=== PATIENT | female | born 1985 | race Caucasian/White ===

== ENCOUNTER 2018-04-30 04:36 | Emergency (ER) | payer OTHER, SELFPAY ==
[2018-04-30 04:39] VITALS: BP 151/81; PULSE 76; RESP 18; TEMP 36.4; O2SAT 98; BMI 24.2
--- NOTE | 2018-04-30 04:45 | ED.DCSUM_ITS ---
- ER Visit Summary Date of Service: 04/30/18 Chief Complaint: Vomiting and diarrhea History of Present Illness: The patient is a 33 F presenting with vomiting and diarrhea which began around 11PM. She states she has had multiple episodes of both vomiting and diarrhea. She denies blood in her stool or emesis. She is concerned about possibility of food poisoning. States she is currently camping and ate a burger with lettuce. She is unsure if anyone else ate the same lettuce. She states she was also in the heat all day drinking alcohol intermittently. She complains of diffuse abdominal cramping. Denies other complaints. Physical Examination: Vitals are stable. Patient is afebrile. Alert no acute distress. HEENT exam is unremarkable. Neck is supple. Lungs are clear and equal bilaterally. Heart is regular rate and rhythm. Abdomen is soft mild epigastric and periumbilical tenderness with no rebound or guarding Extremities are unremarkable. Skin is warm and dry. No focal neurologic deficit. Remainder of exam is unremarkable. Emergency Department Course and Treatment: Patient is given IV fluids, Phenergan. CBC shows a white count 19.5. Chemistries showed glucose 141. Liver lipase are normal. Urinalysis shows 5-10 white blood cells, 10-25 epithelial cells. HCG negative. Patient continues to have nausea and was given Zofran IV. Due to her continued abdominal tenderness and elevated white count, CT Abdomen/pelvis was ordered. This is pending and will be checked by the daytime physician. Disposition: Pending CT results Impression: Abdominal pain, leukocytosis This note was generated with [employer] dictation software. It may contain incorrect words, spelling, and punctuation that were not noted in review of the chart prior to signing ED Disposition - Plan for ED Patient: Chief Complaint: Abd Pain Referrals: [facility],Out of [Primary Care Provider] -
[2018-04-30] MEDS: 0.9% Normal Saline 1,000 ML 1000 ML IV ×2 (04:47→08:46)
[2018-04-30] MEDS: proMETHazine 25 MG/ML Syringe 6.25 MG IV (04:47)
[2018-04-30 04:55] LABS: Absolute Lymphocyte Count 1.16 X10^3/ul (0.83-4.51); Absolute Neutrophil Count 17.9 X10^3/uL (2.0-7.7); Basophil# 0.02 X10^3/uL; Basophil% 0.1 % (0-1); Eosinophil# 0.09 X10^3/uL; Eosinophils% 0.5 % (0-5); Hematocrit 44.3 % (37-47); Lymphocyte # 1.16 X10^3/ul (4.0); Mean Corp Hgb Conc 33.9 g/gl (32-36); Mean Corpuscular Hgb 31.6 pg (27.0-32.0); Mean Corpuscular Volume 93.3 fL (81-99); Mean Platelet Vol. 9.5 fl (6.2-12.0); Monocyte# 0.27 X10^3/uL; Monocyte% 1.4 % (0-10); Neutrophil # 17.89 X10^3/uL (2.7-7.7); Neutrophil % 91.9 % (47-70); Platelet Count 257 K/mm3 (150-450); RBC Distribution Width CV 12.8 % (11.6-14.6); RBC Distribution Width SD 43.3 fl (35.1-43.9); Red Blood Count 4.75 M/mm3 (4.2-5.4); White Blood Count 19.5 K/mm3 (4.4-11.0)
[2018-04-30 05:00] LABS: POSITIVE COUNT NO; POSITIVE DIFFERENTIAL NO; POSITIVE MORPHOLOGY NO
[2018-04-30 05:11] LABS: ALB/GLOB Ratio 1.2 RATIO (0.9-2.4); AST(SGOT) 19 U/L (15-37); Alanine Aminotransfer ALT/SGPT 30 U/L (13-56); Albumin, Serum 4.1 g/dL (3.2-5.0); Alkaline Phosphatase 56 U/L (45-117); Anion Gap 9 (5-15); BUN 13 mg/dL (7-18); BUN/Creat Ratio 18.2 RATIO (10-20); Calcium,Total 8.7 mg/dL (8.5-10.1); Chloride 104 mmol/L (98-107); Creatinine, Serum 0.72 mg/dL (0.55-1.02); EST Glomerular Filtration Rate 99 mL/min (>60); Est Glom Filt Rate - Afr Amer 119 mL/min (>60); Estimated Creatinine Clearance 90.21 ml/min; Globulin 3.5 g/dL (2.2-4.2); Glucose 141 mg/dL (74-106); Lipase 153 U/L (73-393); Potassium 4.1 mmol/L (3.5-5.1); Protein, Total 7.6 g/dL (6.4-8.2); Sodium Level 142 mmol/L (136-145)
[2018-04-30 05:14] LABS: Pregnancy, Serum, hCG Quali. NEGATIVE Negative (0-9 Nonpreg)
[2018-04-30 05:33] LABS: Bacteria 0 SEEN /hpf (None Seen); Mucous, Urine 0 SEEN /hpf (<or=2+); Red Blood Cells-Urine 0 SEEN /hpf (0-5)
[2018-04-30 05:34] LABS: Color, Urine Yellow (Yellow); Glucose, Dipstick Normal (Normal); Ketone-Dipstick 15 mg/dl (Negative); Leukocyte Esterase-Dipstick 100 /ul (Negative); Nitrite-Dipstick Negative (Negative); Occult Blood-Urine Negative /ul (Negative); Protein-Dipstick 15 mg/dl (Negative); Urine Clarity Cloudy (Clear); Urine Urobilinogen Normal (Normal)
[2018-04-30] MEDS: Ondansetron 4 MG/2 ML Vial IV ×2 (05:41→08:46)
[2018-04-30 05:43] LABS: Urine Bilirubin Dipstick 1 mg/dL (Negative)
[2018-04-30 05:44] LABS: Amorphous Sediment 1+ PHOS; Squamous Epithelial Cells - UA 10-25 SEEN /hpf (5-10); White Blood Cells 5-10 SEEN /hpf (0-5)
--- NOTE | 2018-04-30 05:56 | CT_ITS ---
STUDY: CT ABDOMEN AND PELVIS WITH CONTRAST REASON FOR EXAM: Female, 33 years old. Pain, nausea, vomiting RADIATION DOSAGE (If Supplied By Facility): CTDIvol = ( 10.35 ) mGy, DLP = ( 582.54 ) mGycm TECHNIQUE: Transaxial images were obtained from the dome of the diaphragm to the symphysis pubis with oral contrast. 100mL ml of Isovue 300 contrast was administered. Sagittal and coronal images were reconstructed. Individualized dose optimization techniques were used for this CT. COMPARISON: None. FINDINGS: The visualized lung bases are unremarkable. The visualized portions of the heart are within normal limits. Normal liver. Normal gallbladder and extrahepatic biliary system. Normal spleen. Normal pancreas. Normal bilateral adrenal glands. Normal right kidney. Normal left kidney. Normal visualized stomach. Fluid is present throughout the nondistended small bowel and underlying enteritis cannot be excluded. Constipation is suggested. There is non-visualization of the appendix. Normal abdominal aorta. Normal inferior vena cava. Normal retroperitoneum. Normal urinary bladder. Normal abdominal wall. Normal osseous structures. CT/Abdomen/Pelvis WITH Contrast IMPRESSION: Fluid is present throughout the nondistended small bowel and underlying enteritis cannot be excluded. Probable constipation. Electronically Signed: Gregory Saldivar MD at 8:20 EDT Tel , Service support ,
[2018-04-30 06:50] VITALS: BP 142/96; PULSE 79; RESP 16; O2SAT 99
--- NOTE | 2018-04-30 07:04 | ED.RN ---
kiya segurafrienvito [phone]
[2018-04-30 08:46] VITALS: BP 168/103; PULSE 90; RESP 20; O2SAT 97
--- NOTE | 2018-04-30 10:01 | ED.DEP ---
ED Disposition - Plan for ED Patient: Chief Complaint: Abd Pain Instructions: ED Gastroenteritis Viral Prescriptions: Ondansetron [Zofran Odt] 8 mg PO Q8H PRN PRN #10 PRN Reason: Vomiting Dicyclomine HCl [Bentyl] 10 mg PO TIDAC PRN #10 capsule PRN Reason: Pain Referrals: [facility],Out of [Primary Care Provider] - 3-5 Days
[2018-04-30 10:15] VITALS: BP 160/98; PULSE 87; RESP 18; RESP 20; O2SAT 100
== END 2018-04-30 10:16 | disposition home or self-care (01) ==
PROVIDERS: Emergency Medicine; Emergency Provider Emergency Medicine
DX: R10.13 Epigastric pain (principal); R10.33 Periumbilical pain; R11.10 Vomiting, unspecified; D72.829 Elevated white blood cell count, unspecified
CPT/HCPCS: 74177; 80053; 81001; 83690; 84703; 85025; 96361; 96374; 96375; 96376; 99283; J7030; Q9967; A4216; J2405